=== PATIENT | female | born 1990 | race Caucasian/White ===

== ENCOUNTER → 2020-02-22 17:45 | Observation (INO) | END | disposition home health service (06) | LOC: 1NENULAB | PROVIDERS: ADMIT Obstetrics & Gynecology; ATTEND Obstetrics & Gynecology ==

== ENCOUNTER 2020-02-26 22:11 | Inpatient (IN) ==
[2020-02-26] MEDS ORDERED: Metoclopramide 10 MG/2 ML VIAL IVP PRN (22:21)
[2020-02-26] MEDS ORDERED: *HR* FentaNYL (PF) 100 MCG/2 ML VIAL IVP PRN (22:21)
[2020-02-26] MEDS ORDERED: Naloxone 0.4 MG/ML INJ IVP PRN (22:21)
[2020-02-26] MEDS ORDERED: Famotidine 20 MG/2 ML VIAL IVP PRN (22:21)
[2020-02-26] MEDS ORDERED: Ondansetron 4 MG/2 ML VIAL IVP PRN (22:21)
[2020-02-26] MEDS ORDERED: Lidocaine 1% 20 ML MDV INFILT PRN (22:21)
[2020-02-26] MEDS ORDERED: EPHEDrine 50 MG/ML VIAL IVP PRN (23:09)
[2020-02-26 23:13] LABS: Basophils % 0.2 %; Eosinophils # 0.1 K/mcL (0.0-0.6); Eosinophils % 0.6 %; Hematocrit 38.4 % (35.3-44.9); Hemoglobin 12.8 g/dL (11.5-15.4); Immature Granulocytes % 0.5 % (0-4); Lymphocytes # 1.6 K/mcL (0.6-4.6); Lymphocytes % 17.6 %; Mean Corpuscular HGB Conc 33.3 g/dL (31.6-35.5); Mean Corpuscular Hemoglobin 31.3 pg (28.0-33.3); Mean Corpuscular Volume 93.9 fL (83.0-100.0); Mean Platelet Volume 10.8 fL (9.4-12.4); Monocytes # 0.5 K/mcL (0.0-1.3); Monocytes % 5.6 %; Platelet Count 158 K/mcL (140-400); Red Blood Count 4.09 M/mcL (3.82-4.97); Red Cell Distribution Width 13.7 % (11.5-14.5); Segmented Neutrophils % 75.5 %; White Blood Count 9.3 K/mcL (4.3-11.1)
[2020-02-26] MEDS ORDERED: Oxytocin 20 units/ LR 1000 mL 20 UNIT/1,000 ML BAG IVC SCH (23:15)
[2020-02-26] MEDS ORDERED: Epidural Premix (fent/bupiv) 110 ML EP SCH (23:15)
[2020-02-26] MEDS ORDERED: Penicillin G Potassium 5,000,000 UNIT in 0.9 % Sodium Chloride Mini Bag 100 ML IVPB ONE (23:27)
[2020-02-26] MEDS: Ringers Solution, Lactated 1,000 ML IVC SCH (23:38)
[2020-02-27 02:33] LABS: Amphetamine Screen,Urine Negative ng/mL (Cutoff=1000); Barbiturate Screen,Urine Negative ng/mL (Cutoff=200); Benzodiazepines Screen,Urine Negative ng/mL (Cutoff=200); Cannabinoid Screen,Urine Negative ng/mL (Cutoff = 50); Cocaine Screen,Urine Negative ng/mL (Cutoff= 300); Opiate Screen,Urine Negative ng/mL (Cutoff=300); Phencyclidine Screen,Urine Negative ng/mL (Cutoff=25)
[2020-02-27] MEDS: Penicillin G Potassium 2,500,000 UNIT in 0.9 % Sodium Chloride 100 ML IVPB SCH ×2 (03:33→07:33)
[2020-02-27] MEDS: Ringers Solution, Lactated 1,000 ML IVC SCH (05:31)
[2020-02-27] MEDS ORDERED: Acetaminophen 325 MG TABLET PO PRN (13:26)
[2020-02-27] MEDS ORDERED: Benzocaine/Menthol 56 GM AEROSOL SPRAY TP PRN (13:26)
[2020-02-27] MEDS ORDERED: Oxytocin 20 units/ LR 1000 mL 20 UNIT/1,000 ML BAG IVC SCH (13:26)
[2020-02-27] MEDS ORDERED: Lanolin 7 G OINT...G. TP PRN (13:26)
[2020-02-27] MEDS ORDERED: *HR* HYDROcodone/Acet 5/325 mg TABLET PO PRN (13:26)
[2020-02-27] MEDS: Ibuprofen 600 MG TABLET PO PRN (20:00)
[2020-02-28] MEDS: Ibuprofen 600 MG TABLET PO PRN (05:05)
[2020-02-28 07:57] VITALS: BP 103/68
[2020-02-28] MEDS ORDERED: Prenatal Vit/FA 1 EACH TABLET PO SCH (09:00)
== END 2020-02-28 11:45 | disposition home or self-care (01) | DRG 807 ==
LOC: 1NENULAB 22:11 → 1NENUOBS 02-27 14:20
PROVIDERS: ADMIT Obstetrics & Gynecology; ATTEND Obstetrics & Gynecology